=== PATIENT | male | born 1985 | race Caucasian/White ===

== ENCOUNTER 2021-01-14 14:35 | Emergency (ER) | payer BC ==
[2021-01-14] MEDS ORDERED: fentaNYL 100 MCG/2 ML SDV IM ONE (16:48)
--- NOTE | 2021-01-14 16:50 | EDM.PDOC ---
ED HPI GENERAL MEDICAL PROBLEM - General Chief Complaint: Genitourinary Problem Stated Complaint: RT INGUINAL PAIN AFTER LIFTING TREES Time Seen by Provider: 01/14/21 16:43 Source of Information: Reports: Patient, RN Notes Reviewed History Limitations: Reports: No Limitations - History of Present Illness INITIAL COMMENTS - FREE TEXT/NARRATIVE: 35-year-old gentleman presents emergency department day complaint of testicular pain, he states he was doing some yard work lifting some heavy logs over the last couple days but over the last 12 hours or so the pain in his testicle has gotten significantly worse he also notices a bulge in his groin he is concerned about a hernia Right Scrotum Pain Score (Numeric/FACES): 10 - Related Data Allergies Allergy/AdvReac Type Severity Reaction Status Date / Time No Known Allergies Allergy Verified 01/14/21 16:08 Home Meds: Home Meds NK [No Known Home Meds] 01/14/21 [History] Past Medical History Musculoskeletal History: Reports: Arthritis, Back Pain, Chronic, Fracture, Other (See Below) Other Musculoskeletal History: lumbar - Infectious Disease History Infectious Disease History: Reports: Chicken Pox Social & Family History - Tobacco Use Tobacco Use Status *Q: Never Tobacco User - Caffeine Use Caffeine Use: Reports: Coffee - Recreational Drug Use Recreational Drug Use: No ED ROS GENERAL - Review of Systems Review Of Systems: See Below Constitutional: Reports: No Symptoms Respiratory: Reports: No Symptoms Cardiovascular: Reports: No Symptoms GI/Abdominal: Reports: Abdominal Pain. Denies: Nausea, Vomiting : Reports: Other (Testicular pain) ED EXAM, RENAL/ - Physical Exam Exam: See Below Exam Limited By: No Limitations General Appearance: Alert, WD/WN, No Apparent Distress Respiratory/Chest: No Respiratory Distress GI/Abdominal: Soft, Tender, Hernia (Appreciated in the right inguinal region) (Male) Exam: Circumcised, Testicular Tenderness (R). No: Scrotum Tenderness (L), Urethral Discharge Course - Vital Signs Last Recorded V/S: Last Vital Signs Temp 98.4 F 01/14/21 16:05 Pulse 82 01/14/21 19:09 Resp 16 01/14/21 19:09 BP 143/94 H 01/14/21 19:09 Pulse Ox 97 01/14/21 19:09 - Orders/Labs/Meds Orders: Active Orders 24 hr Category Date Time Status Scrotal Duplex Ltd [US] Stat Exams 01/14/21 Ordered Scrotum and Contents [US] Stat Exams 01/14/21 16:48 Ordered Meds: Medications Discontinued Medications Generic Name Dose Route Start Last Admin Trade Name Portia PRN Reason Stop Dose Admin Fentanyl 50 mcg 01/14/21 16:48 01/14/21 17:14 Fentanyl 100 Mcg/2 Ml Sdv IM 01/14/21 16:49 50 mcg ONETIME ONE Administration Hydromorphone HCl 1 mg 01/14/21 18:17 01/14/21 18:24 Hydromorphone 1 Mg/Ml Syringe IM 01/14/21 18:18 1 mg ONETIME ONE Administration Departure - Departure Time of Disposition: 19:17 Disposition: Home, Self-Care 01 Condition: Fair Clinical Impression: Right inguinal hernia - Discharge Information Instructions: Inguinal Hernia, Adult, [id number] Referrals: PCP,None [Primary Care Provider] - Forms: ED Department Discharge Additional Instructions: Use ibuprofen for baseline pain control use hydrocodone for breakthrough pain, please call to the [facility] in the morning for an appointment time with general surgery Sepsis Event Note (ED) - Evaluation Sepsis Screening Result: No Definite Risk - Focused Exam Vital Signs: Vital Signs Temp Pulse Resp BP Pulse Ox 01/14/21 19:09 82 16 143/94 H 97 01/14/21 18:08 82 144/95 H 98 01/14/21 18:01 103 H 155/115 H 98 01/14/21 16:05 98.4 F 76 16 162/109 H 99 - My Orders Last 24 Hours: My Active Orders 01/14/21 Scrotal Duplex Ltd [US] Stat 01/14/21 16:48 Scrotum and Contents [US] Stat - Assessment/Plan Last 24 Hours: My Active Orders 01/14/21 Scrotal Duplex Ltd [US] Stat 01/14/21 16:48 Scrotum and Contents [US] Stat Plan: Assessment Acuity = acute Site and laterality = right inguinal hernia Etiology = lifting injury Manifestations = none Location of injury = Home Lab values = ultrasound describes a hernia above Plan Prescription for hydrocodone 5/325 1 tab p.o. 3 times daily as needed total #10 provided for pain control consultation with general surgery he will contact the clinic for an appointment time This note was dictated using [employer] recognition software please call with any questions on syntax or grammar.
[2021-01-14] MEDS ORDERED: HYDROmorphone 1 MG/ML Syringe IM ONE (18:17)
--- NOTE | 2021-01-17 09:03 | US ---
Scrotal Duplex Ltd, Scrotum and Contents CLINICAL HISTORY: Right testicular pain FINDINGS: Doppler spectra shows normal flow to both testes. The right testicle measures 4.0 x 2.2 x 3.1 cm. The right epididymis has a normal appearance The left testicle measures 4.8 x 2.2 x 3.4 cm. The left epididymis has a normal appearance There are no masses or evidence for varicocele. Patient does have a right inguinal hernia which increases on Valsalva and reduces IMPRESSION: Normal testicles No mass or abnormal fluid collection Right inguinal hernia
== END 2021-01-14 19:29 | disposition home or self-care (01) ==
LOC: JP.ED 14:35
DX: K40.90 Unilateral inguinal hernia, without obstruction or gangrene, not specified as recurrent (principal)
CPT/HCPCS: 76870; 93976; 96372; 99284; J1170; J3010